=== PATIENT | male | born 1945 | race Caucasian/White ===

== ENCOUNTER → 2018-01-17 08:22 | Outpatient (CLI) | payer MEDICARE, SELFPAY ==
--- NOTE | 2018-01-17 08:30 | US_ITS ---
US abdomen limited History:Right upper quadrant pain Ordering Physician:Tim Bardales MD Patient Age: 72 years Comparison:None Findings: Pancreas:Unremarkable. No obvious mass or abnormal fluid collection. No ductal dilatation Liver:No focal liver lesions demonstrated. Homogeneous echogenicity. No intrahepatic biliary ductal dilatation evident. Right Kidney:There is thinning of the right renal cortex. No hydronephrosis. Gallbladder:No gallstones, gallbladder wall thickening, pericholecystic fluid, or biliary dilatation. There is mild amount of concentrated bile/sludge within the gallbladder measuring clinical significance. No shadowing stones. Impression: 1. No gallstones or gallbladder wall thickening or biliary dilatation. 2. Concentrated bile versus sludge within the gallbladder of questionable clinical significance
== END ==
PROVIDERS: Family Provider Family Medicine; PCP Family Medicine; Visit Provider Family Medicine
DX: R10.11 Right upper quadrant pain (principal)
CPT/HCPCS: 76705

== ENCOUNTER → 2019-03-20 10:21 | Outpatient (CLI) | payer MEDICARE, SELFPAY ==
[2019-03-20 10:42] LABS: Basophils % 0.8 % (0.1-2.0); Eosinophils # 0.2 K/mm3 (0.0-0.4); Eosinophils % 5.9 % (0.1-12.0); Hematocrit 47.5 % (42.0-52.0); Hemoglobin 14.6 g/dL (14.1-18.0); Lymphocytes # 1.1 K/mm3 (0.7-4.5); Lymphocytes % 29.6 % (10-50); Mean Corpuscular HGB Conc 30.8 g/dL (31.8-35.4); Mean Corpuscular Hemoglobin 28.1 pg (27.0-31.2); Mean Corpuscular Volume 91.4 fl (80-94); Mean Platelet Volume 9.9 fl (7.4-10.4); Monocytes # 0.2 K/mm3 (0.1-1.0); Monocytes % 5.8 % (1.7-9.3); Neutrophils # 2.1 K/mm3 (1.8-7.8); Neutrophils % 57.9 % (37.0-80.0); Platelet Count 131 K/mm3 (142-424); Red Cell Distribution Width 13.9 % (11.5-17.5); White Blood Count 3.6 K/mm3 (4.8-10.8)
[2019-03-20 10:47] LABS: Creatinine,Urine Random 80 mg/dL (20-320)
[2019-03-20 11:45] LABS: Alanine Aminotransferase 20 U/L (12-78); Albumin Level 3.2 gm/dL (3.4-5.0); Alkaline Phosphatase 60 U/L (46-116); Anion Gap 11.2 mEq/L (5-15); Aspartate Amino Transferase 16 U/L (15-37); Bilirubin,Total 0.7 mg/dL (0.2-1.0); Blood Urea Nitrogen 14 mg/dL (7-18); Calcium 8.9 mg/dL (8.5-10.1); Carbon Dioxide 30 mmol/L (21.0-32.0); Chloride 105 mmol/L (98-107); Chol/HDL Ratio 3.5 (1-3.5); Cholesterol 139 mg/dL (140-200); Creatinine,Serum 1.28 mg/dL (0.70-1.30); Estimated Glomerular Filt Rate 55 ml/min (>60); GFR (African American) 66 ML/MIN (>60); Globulin 3.1 gm/dl (1.3-3.2); Glucose 103 mg/dL (74-106); HDL Cholesterol 40 mg/dL (27-67); LDL Cholesterol 83 mg/dL (0-130); Potassium 4.2 mmoL/L (3.5-5.1); Prostate Specific Ag Screen 1.1 ng/mL (0.0-4.0); Sodium 142 mmol/L (136-145); Thyroid Stimulating Hormone 1.78 uIU/ml (0.358-3.740); Total Protein,Serum 6.3 gm/dL (6.4-8.2); Triglycerides 82 mg/dL (30-200); VLDL Cholesterol 16 mg/dL (0-40)
[2019-03-20 11:57] LABS: Hemoglobin A1C 5.8 % (0.0-7.0)
[2019-03-21 16:26] LABS: Microalbumin, Urine <3.0 ug/mL (Not Estab.)
== END ==
PROVIDERS: Visit Provider Nurse Practitioner
DX: E78.5 Hyperlipidemia, unspecified (principal); I10 Essential (primary) hypertension; M19.91 Primary osteoarthritis, unspecified site; N40.0 Benign prostatic hyperplasia without lower urinary tract symptoms; Z12.5 Encounter for screening for malignant neoplasm of prostate; Z79.899 Other long term (current) drug therapy
CPT/HCPCS: 36415; 80053; 80061; 82043; 82570; 83036; 84443; 85025; G0103

== ENCOUNTER → 2022-04-05 14:38 | Outpatient (CLI) | payer MEDICARE, OTHER, SELFPAY ==
[2022-04-05 18:25] LABS: Basophils % 0.9 % (0.1-2.0); Eosinophils # 0.2 K/mm3 (0.0-0.4); Eosinophils % 5.3 % (0.1-12.0); Hematocrit 47.6 % (42.0-52.0); Hemoglobin 14.9 g/dL (14.1-18.0); Lymphocytes # 0.9 K/mm3 (0.7-4.5); Lymphocytes % 21.1 % (10-50); Mean Corpuscular HGB Conc 31.2 g/dL (31.8-35.4); Mean Corpuscular Hemoglobin 28.7 pg (27.0-31.2); Mean Platelet Volume 11.5 fl (7.4-10.4); Monocytes # 0.2 K/mm3 (0.1-1.0); Monocytes % 5.8 % (1.7-9.3); Neutrophils # 2.7 K/mm3 (1.8-7.8); Neutrophils % 66.9 % (37.0-80.0); Platelet Count 139 K/mm3 (142-424); Red Blood Count 5.17 M/mm3 (4.60-6.20); Red Cell Distribution Width 13.7 % (11.5-17.5); White Blood Count 4.1 K/mm3 (4.8-10.8)
[2022-04-05 18:41] LABS: Alanine Aminotransferase 16 U/L (12-78); Albumin Level 3.7 g/dl (3.5-5.0); Albumin/Globulin Ratio 1.3 (1.1-1.8); Alkaline Phosphatase 90 U/L (38-126); Anion Gap 15.3 mEq/L (5-15); Aspartate Amino Transferase 26 U/L (17-59); Bilirubin,Total 0.8 mg/dl (0.2-1.3); Blood Urea Nitrogen 21 mg/dl (9-20); Calcium 9.6 mg/dl (8.4-10.2); Carbon Dioxide 26 mmol/L (22.0-30.0); Chloride 103 mmol/L (98-107); Chol/HDL Ratio 4.8 (1-3.5); Cholesterol 152 mg/dl (140-200); Estimated Glomerular Filt Rate 49 ml/min (>60); GFR (African American) 59 ML/MIN (>60); Globulin 2.8 g/dL (1.3-3.2); Glucose 97 mg/dl (74-100); HDL Cholesterol 32 mg/dl (40-60); Potassium 4.3 mmoL/L (3.5-5.1); Sodium 140 mmol/L (136-145); Total Protein,Serum 6.5 g/dl (6.3-8.2); Triglycerides 104 mg/dl (30-150); VLDL Cholesterol 21 mg/dL (0-40)
[2022-04-05 18:52] LABS: Direct LDL Cholesterol 93.64 mg/dL (100-129)
== END ==
PROVIDERS: PCP Nurse Practitioner; Visit Provider Nurse Practitioner
DX: E78.5 Hyperlipidemia, unspecified (principal); I10 Essential (primary) hypertension; M19.90 Unspecified osteoarthritis, unspecified site; N40.0 Benign prostatic hyperplasia without lower urinary tract symptoms; R60.0 Localized edema
CPT/HCPCS: 80053; 80061; 82043; 84443; 85025

== ENCOUNTER → 2022-04-06 12:47 | Outpatient (CLI) | payer MEDICARE, OTHER, SELFPAY ==
--- NOTE | 2022-04-06 13:00 | XR_ITS ---
FINAL REPORT TECHNIQUE: Chest PA & Lateral CLINICAL HISTORY: bibasilar rales FINDINGS: 2 views of the chest were performed. The heart size is normal. The mediastinum is within normal limits. There is no acute cardiopulmonary process. There are no pleural effusions. There is no pneumothorax. The bony thorax appears intact. IMPRESSION: No acute cardiopulmonary process. Reviewed, Interpreted and Dictated by Alberto Deng MD Transcribed by Soco Gandhi Authenticated and [facility]
== END ==
PROVIDERS: PCP Family Medicine; Visit Provider Nurse Practitioner
DX: R09.89 Other specified symptoms and signs involving the circulatory and respiratory systems (principal)
CPT/HCPCS: 71046

== ENCOUNTER → 2022-05-31 12:43 | Outpatient (CLI) | payer MEDICARE, OTHER, SELFPAY ==
--- NOTE | 2022-05-31 12:50 | XR_ITS ---
FINAL REPORT CLINICAL HISTORY: cough, bronchitis, LLL pneumonia COMPARISON: 04/06/2022 FINDINGS: 2 views of the chest were obtained . The heart is normal in size. The mediastinum is within normal limits. The lungs are clear. There is no pneumothorax. Osseous structures demonstrate moderate degenerative changes. IMPRESSION: No acute cardiopulmonary process. Reviewed, Interpreted and Dictated by Adi Downing III, MD Transcribed by Negrita Leonard Authenticated and [facility]
== END ==
PROVIDERS: PCP Family Medicine; Visit Provider Nurse Practitioner
DX: J18.9 Pneumonia, unspecified organism (principal); J40 Bronchitis, not specified as acute or chronic; R05.9 Cough, unspecified
CPT/HCPCS: 71046

== ENCOUNTER → 2022-06-14 12:35 | Outpatient (CLI) | payer MEDICARE, OTHER, SELFPAY ==
[2022-06-14 19:24] LABS: Alanine Aminotransferase 18 U/L (12-78); Albumin Level 3.6 g/dl (3.5-5.0); Albumin/Globulin Ratio 1.3 (1.1-1.8); Alkaline Phosphatase 65 U/L (38-126); Anion Gap 12.1 mEq/L (5-15); Aspartate Amino Transferase 22 U/L (17-59); Blood Urea Nitrogen 26 mg/dl (9-20); Calcium 8.9 mg/dl (8.4-10.2); Carbon Dioxide 27 mmol/L (22.0-30.0); Chloride 105 mmol/L (98-107); Estimated Glomerular Filt Rate 42 ml/min (>60); GFR (African American) 51 ML/MIN (>60); Globulin 2.7 g/dL (1.3-3.2); Glucose 117 mg/dl (74-100); Potassium 4.1 mmoL/L (3.5-5.1); Sodium 140 mmol/L (136-145); Total Protein,Serum 6.3 g/dl (6.3-8.2)
[2022-06-14 19:53] LABS: Thyroid Stimulating Hormone 0.86 uIU/mL (0.465-4.68)
[2022-06-14 20:29] LABS: Basophils % 0.6 % (0.1-2.0); Eosinophils # 0.2 K/mm3 (0.0-0.4); Eosinophils % 5.3 % (0.1-12.0); Hematocrit 43.8 % (42.0-52.0); Hemoglobin 14.5 g/dL (14.1-18.0); Lymphocytes # 0.9 K/mm3 (0.7-4.5); Mean Corpuscular Hemoglobin 29.5 pg (27.0-31.2); Mean Corpuscular Volume 89.5 fl (80-94); Mean Platelet Volume 11.2 fl (7.4-10.4); Monocytes # 0.2 K/mm3 (0.1-1.0); Monocytes % 5.3 % (1.7-9.3); Neutrophils % 67.7 % (37.0-80.0); Platelet Count 124 K/mm3 (142-424); Red Cell Distribution Width 14.1 % (11.5-17.5); White Blood Count 4.4 K/mm3 (4.8-10.8)
== END ==
PROVIDERS: PCP Nurse Practitioner; Visit Provider Nurse Practitioner
DX: I10 Essential (primary) hypertension (principal); J18.9 Pneumonia, unspecified organism; J40 Bronchitis, not specified as acute or chronic; M19.90 Unspecified osteoarthritis, unspecified site; R05.9 Cough, unspecified; R06.2 Wheezing; E78.5 Hyperlipidemia, unspecified
CPT/HCPCS: 80053; 84443; 85025

== ENCOUNTER → 2022-10-06 23:34 | Outpatient (CLI) | payer MEDICARE, OTHER, SELFPAY ==
[2022-10-06 18:56] LABS: Basophils % 1.1 % (0.1-2.0); Eosinophils # 0.2 K/mm3 (0.0-0.4); Eosinophils % 5.5 % (0.1-12.0); Hematocrit 45.1 % (42.0-52.0); Hemoglobin 14.7 g/dL (14.1-18.0); Lymphocytes # 0.8 K/mm3 (0.7-4.5); Lymphocytes % 18.9 % (10-50); Mean Corpuscular HGB Conc 32.7 g/dL (31.8-35.4); Mean Corpuscular Hemoglobin 29.2 pg (27.0-31.2); Mean Corpuscular Volume 89.4 fl (80-94); Mean Platelet Volume 10.8 fl (7.4-10.4); Monocytes # 0.2 K/mm3 (0.1-1.0); Monocytes % 5.7 % (1.7-9.3); Neutrophils # 2.8 K/mm3 (1.8-7.8); Neutrophils % 68.9 % (37.0-80.0); Platelet Count 136 K/mm3 (142-424); Red Blood Count 5.04 M/mm3 (4.60-6.20); Red Cell Distribution Width 13.7 % (11.5-17.5)
[2022-10-06 19:04] LABS: Chloride 99 mmol/L (98-107)
[2022-10-06 19:05] LABS: Potassium 3.9 mmoL/L (3.5-5.1); Sodium 137 mmol/L (136-145)
[2022-10-06 19:07] LABS: Blood Urea Nitrogen 19 mg/dl (9-20); Estimated Glomerular Filt Rate 49 ml/min (>60); GFR (African American) 59 ML/MIN (>60)
[2022-10-06 19:08] LABS: Alanine Aminotransferase 16 U/L (12-78); Albumin Level 3.5 g/dl (3.5-5.0); Albumin/Globulin Ratio 1.3 (1.1-1.8); Alkaline Phosphatase 75 U/L (38-126); Anion Gap 16.9 mEq/L (5-15); Aspartate Amino Transferase 28 U/L (17-59); Calcium 8.9 mg/dl (8.4-10.2); Carbon Dioxide 25 mmol/L (22.0-30.0); Globulin 2.7 g/dL (1.3-3.2); Glucose 97 mg/dl (74-100); Total Protein,Serum 6.2 g/dl (6.3-8.2)
[2022-10-06 19:19] LABS: C-Reactive Protein 9.7 mg/L (0-4)
[2022-10-06 19:38] LABS: Erythrocyte Sedimentation Rate 12 mm/hr (0-20)
[2022-10-06 22:05] LABS: Uric Acid 5.7 mg/dl (3.5-8.5)
[2022-10-08 11:12] LABS: RA Latex Turbid. <10.0 IU/mL (<14.0)
[2022-11-07 20:40] LABS: Antinuclear Antibodies, IFA Positive
== END ==
PROVIDERS: PCP Nurse Practitioner; Visit Provider Nurse Practitioner
DX: I10 Essential (primary) hypertension (principal); M19.90 Unspecified osteoarthritis, unspecified site
CPT/HCPCS: 80053; 84550; 85025; 85651; 86038; 86140; 86431

== ENCOUNTER → 2022-10-29 23:08 | Outpatient (CLI) | payer MEDICARE, OTHER, SELFPAY | PROVIDERS: PCP Nurse Practitioner; Visit Provider Nurse Practitioner | DX: J06.9 Acute upper respiratory infection, unspecified (principal); R30.0 Dysuria; B96.29 Other Escherichia coli [E. coli] as the cause of diseases classified elsewhere | CPT/HCPCS: 87086; 87088; 87186; 87635; C9803; U0003; U0005 ==

== ENCOUNTER → 2022-11-04 14:39 | Outpatient (CLI) | payer MEDICARE, OTHER, SELFPAY ==
--- NOTE | 2022-11-04 14:44 | XR_ITS ---
FINAL REPORT CLINICAL HISTORY: bronchitis, arrhythmia, soa FINDINGS: Two views of the chest were obtained. The heart size and pulmonary vascularity are within normal limits. The mediastinum is normal. No acute pulmonary abnormality is identified. There is no pneumothorax. The bony thorax is intact. IMPRESSION: No active cardiopulmonary disease. Reviewed, Interpreted and Dictated by Adi Downing III, MD Transcribed by Natividad Frias Authenticated and [facility]
--- NOTE | 2022-11-04 15:50 | ECG_ITS ---
APPROVED REPORT Exam: Resting ECG HR:110 bpm ECG Measurements Heart Rate 110 AXES QRSd 153 QRS 65 QT 365 T -14 QTc 430 Conclusion ATRIAL FIBRILLATION WITH RAPID VENTRICULAR RESPONSE WITH ABERRANT CONDUCTION OR VENTRICULAR PREMATURE COMPLEXES RIGHT BUNDLE BRANCH BLOCK [120+ ms QRS DURATION, UPRIGHT V1, 40+ ms S IN I/aVL/V4/V5/V6] ABNORMAL ECG UNCONFIRMED REPORT Electronically signed by : Kris Moscoso MD 11/05/2022 16:19:51
== END ==
PROVIDERS: PCP Nurse Practitioner; Visit Provider Nurse Practitioner
DX: I49.9 Cardiac arrhythmia, unspecified (principal); J40 Bronchitis, not specified as acute or chronic
CPT/HCPCS: 71046; 93005

== ENCOUNTER 2022-11-04 15:43 | Emergency (ER) | payer MEDICARE, OTHER, SELFPAY ==
[2022-11-04] VITALS (7 sets, daily range): BP systolic 126–163; BP diastolic 64–84; PULSE 55–113; RESP 11–18; TEMP 36.8–37; O2SAT 95–98; BMI 40.0
--- NOTE | 2022-11-04 16:10 | PC.NURSE ---
ED MD AT BEDSIDE
--- NOTE | 2022-11-04 16:15 | XR_ITS ---
PROCEDURE INFORMATION: Exam: XR Chest Exam date and time: 11/04/2022 4:22 PM Age: 77 years old Clinical indication: Other: A-fib; Patient HX: PT send to ED by physician, 0 chest complaints; Additional info: Edema TECHNIQUE: Imaging protocol: Radiologic exam of the chest. Views: 1 view. COMPARISON: CR XR CHEST 2V 11/04/2022 2:48 PM FINDINGS: Lungs: Lungs are clear. No consolidation or pulmonary edema. Pleural spaces: No pleural effusion. No pneumothorax. Heart/Mediastinum: Cardiomediastinal silhouette is normal. Mild aortic calcifications. Bones/joints: No acute abnormality. IMPRESSION: No acute cardiopulmonary disease.
--- NOTE | 2022-11-04 16:18 | HMH.EDARPALP ---
Discharge Plan Disposition Patient Disposition: Home, Self-Care Chief Complaint: Arrhythmia/Palpitations Prescriptions Prescriptions: No Action losartan 100 mg tablet 100 mg PO DAILY Qty: 90 1RF albuterol sulfate 90 mcg/actuation HFA aerosol inhaler 2 puff inhalation Q4-6H PRN (Reason: shortness of breath or wheezing) Qty: 8.5 0RF prednisone 20 mg tablet 20 mg PO .COMPLEX Qty: 15 0RF Rx Instructions: 20 mg orally BID x 5 days then daily x 5 days tamsulosin 0.4 mg capsule See Rx Instructions .ROUTE .COMPLEX Qty: 90 3RF Dose Instruction: TAKE 1 CAPSULE DAILY Rx Instructions: TAKE 1 CAPSULE DAILY meloxicam 15 mg tablet 15 mg PO DAILY Qty: 90 1RF atorvastatin 10 mg tablet See Rx Instructions .ROUTE .COMPLEX Qty: 90 1RF Dose Instruction: TAKE 1 TABLET DAILY Rx Instructions: TAKE 1 TABLET DAILY cefuroxime axetil 500 mg tablet 500 mg PO BID Qty: 20 0RF Referrals Follow up/Referrals: Keila Angel APRN [Primary Care Provider] - See instructions Clinical Impressions Clinical Impression: Cardiac dysrhythmia Discharge ED Provider: Andrew Pearce Arrhythmia/Palpitations HPI General Chief Complaint: Arrhythmia/Palpitations Stated Complaint: abnormal EKG Time Seen by Provider: 11/04/22 16:09 Mode of Arrival: Wheelchair Limitations: No Limitations Related Data Previous Rx's Medication Instructions Recorded losartan 100 mg tablet 100 mg PO DAILY #90 tabs 04/05/22 tamsulosin 0.4 mg capsule See Rx Instructions .Route 10/01/22 .COMPLEX #90 caps meloxicam 15 mg tablet 15 mg PO DAILY #90 tabs 10/07/22 atorvastatin 10 mg tablet See Rx Instructions .Route 10/12/22 .COMPLEX #90 tabs prednisone 20 mg tablet 20 mg PO .COMPLEX #15 tabs 10/29/22 cefuroxime axetil 500 mg tablet 500 mg PO BID #20 tabs 11/03/22 albuterol sulfate 90 mcg/actuation 2 puff inhalation Q4-6H PRN 11/04/22 aerosol inhaler shortness of breath or wheezing #8.5 grams Allergies Allergy/AdvReac Type Severity Reaction Status Date / Time No Known Allergies Allergy Verified 11/04/22 13:30 [facility] Disclaimer: The information contained in this section may have been updated after the patient was seen, as this information can be updated by other users. Medical History (Updated 11/04/22 @ 19:18 by Andrew Pearce MD) Bibasilar crackles Bilateral chronic knee pain Bilateral lower extremity edema BPH (benign prostatic hyperplasia) Cardiac arrhythmia Essential hypertension Hyperlipemia Hyperlipidemia Hypertension Osteoarthritis Surgical History History of knee replacement Social History Smoking Status: Never smoker alcohol intake: never current occupational status: retired Travel in the last 8 weeks: None ROS Obtained: Yes Systems reviewed as appropriate & no additional complaints except as documented Physical Exam General General appearance: alert and in no apparent distress Respiratory Respiratory exam: Present normal lung sounds bilaterally; Absent respiratory distress Cardiovascular Cardiovascular exam: Present regular rate and irregular rhythm Neurological Exam Neurological exam: Present alert, oriented X3 and CN II-XII intact Medical Decision Making Medical Records MR Comment: 77-year-old white male was sent to the emergency department with a question of atrial fibrillation. The patient was seeing his primary care provider and they noted an irregularity of his heartbeat and was concerned about atrial fibrillation. Patient is also being treated for known urinary tract infection as well. Evaluation has included a CBC CMP and a urinalysis. CMP reveals a creatinine of 1.5 and the urinalysis is positive for 20-50 white blood cells. Chest x-ray was unremarkable EKGs were obtained and the official interpretation from the machine was [facility]
[2022-11-04 16:30] LABS: Basophils % 0.2 % (0.1-2.0); Eosinophils % 0.4 % (0.1-12.0); Hematocrit 45.8 % (42.0-52.0); Hemoglobin 14.7 g/dL (14.1-18.0); Lymphocytes # 0.4 K/mm3 (0.7-4.5); Lymphocytes % 5.9 % (10-50); Mean Corpuscular HGB Conc 32.1 g/dL (31.8-35.4); Mean Corpuscular Hemoglobin 27.8 pg (27.0-31.2); Mean Corpuscular Volume 86.4 fl (80-94); Mean Platelet Volume 9.5 fl (7.4-10.4); Monocytes # 0.4 K/mm3 (0.1-1.0); Monocytes % 5.9 % (1.7-9.3); Neutrophils # 6.3 K/mm3 (1.8-7.8); Neutrophils % 87.7 % (37.0-80.0); Platelet Count 122 K/mm3 (142-424); Red Cell Distribution Width 13.8 % (11.5-17.5); White Blood Count 7.2 K/mm3 (4.8-10.8)
[2022-11-04 16:32] LABS: MANUAL DIFFERENTIAL MANUAL DIFFERENTIAL (MANUAL DIFF)
[2022-11-04 16:33] LABS: Alanine Aminotransferase 27 U/L (12-78); Albumin Level 3.4 g/dl (3.5-5.0); Albumin/Globulin Ratio 1.2 (1.1-1.8); Alkaline Phosphatase 61 U/L (38-126); Anion Gap 12.6 mEq/L (5-15); Aspartate Amino Transferase 27 U/L (17-59); Blood Urea Nitrogen 25 mg/dl (9-20); Calcium 8.6 mg/dl (8.4-10.2); Carbon Dioxide 27 mmol/L (22.0-30.0); Chloride 102 mmol/L (98-107); Creatinine Clearance Estimated 81 mL/min (50-200); Estimated Glomerular Filt Rate 45 ml/min (>60); GFR (African American) 55 ML/MIN (>60); Globulin 2.9 g/dL (1.3-3.2); Glucose 112 mg/dl (74-100); Magnesium 2.1 mg/dl (1.6-2.3); Potassium 3.6 mmoL/L (3.5-5.1); Sodium 138 mmol/L (136-145); Total Protein,Serum 6.3 g/dl (6.3-8.2)
[2022-11-04 16:38] LABS: D-Dimer 1.01 ug/mL (0.0-0.5)
[2022-11-04 16:46] LABS: Troponin I < 0.01 ng/ml (0.00-0.034)
[2022-11-04 16:54] LABS: Lymphocytes % 5 % (10-50); Monocytes % 6 % (2-9); Neutrophils % 89 % (42-76); Total Cells Counted 100
[2022-11-04 16:55] LABS: Platelet Estimate Slight Decrease; RBC Morphology Normal
[2022-11-04 16:56] LABS: Microscopic, Urine URINE MICROSCOPIC (MICROSCOPIC)
[2022-11-04 16:59] LABS: Appearance,Urine CLEAR (Clear); Bilirubin,Urine Negative (Negative); Blood, Urine 1+ (Negative); Color,Urine YELLOW (Yellow); Glucose,Urine (UA) Negative (Negative); Ketones,Urine Negative (Negative); Leukocyte Esterase,Urine 2+ (Negative); Nitrate,Urine Negative (Negative); Protein,Urine Negative (Negative); Urobilinogen,Urine 0.2 EU/dl (0.2)
[2022-11-04 17:29] LABS: WBC,Urine 20-50 #/hpf (0-3)
--- NOTE | 2022-11-04 17:53 | ECG_ITS ---
APPROVED REPORT Exam: Resting ECG HR:110 bpm ECG Measurements Heart Rate 110 AXES QRSd 154 QRS 66 QT 370 T -18 QTc 435 Conclusion ATRIAL FIBRILLATION WITH RAPID VENTRICULAR RESPONSE WITH ABERRANT CONDUCTION OR VENTRICULAR PREMATURE COMPLEXES RIGHT BUNDLE BRANCH BLOCK [120+ ms QRS DURATION, UPRIGHT V1, 40+ ms S IN I/aVL/V4/V5/V6] ABNORMAL ECG UNCONFIRMED REPORT Electronically signed by : Kris Moscoso MD 11/05/2022 16:19:36
[2022-11-04 18:24] LABS: Troponin I < 0.01 ng/ml (0.00-0.034)
== END 2022-11-04 19:29 | disposition home or self-care (01) ==
PROVIDERS: Emergency Provider Emergency Medicine; PCP Nurse Practitioner
DX: R00.2 Palpitations (principal); I10 Essential (primary) hypertension; E78.5 Hyperlipidemia, unspecified; N40.0 Benign prostatic hyperplasia without lower urinary tract symptoms
CPT/HCPCS: 71045; 71046; 80053; 81001; 83735; 84484; 85007; 85025; 85378; 87086; 93005; 96372; 99285

== ENCOUNTER 2022-11-08 12:15 | Day surgery (SDC) | payer MEDICARE, OTHER, SELFPAY ==
[2022-11-08 12:34] VITALS: BMI 43.0
--- NOTE | 2022-11-08 12:52 | ECG_ITS ---
APPROVED REPORT Exam: Resting ECG HR:98 bpm ECG Measurements Heart Rate 98 AXES QRSd 154 QRS 60 QT 400 T -9 QTc 455 Conclusion ATRIAL FIBRILLATION WITH ABERRANT CONDUCTION OR VENTRICULAR PREMATURE COMPLEXES RIGHT BUNDLE BRANCH BLOCK [120+ ms QRS DURATION, UPRIGHT V1, 40+ ms S IN I/aVL/V4/V5/V6] ABNORMAL ECG UNCONFIRMED REPORT Electronically signed by : Kris Moscoso MD 11/08/2022 17:10:44
[2022-11-08 13:00] VITALS: BP 159/84; PULSE 93; RESP 18; O2SAT 100
--- NOTE | 2022-11-08 13:00 | ECG_ITS ---
APPROVED REPORT Exam: Resting ECG HR:95 bpm ECG Measurements Heart Rate 95 AXES QRSd 154 QRS 63 QT 412 T -1 QTc 464 Conclusion ATRIAL FLUTTER/TACHYCARDIA RIGHT BUNDLE BRANCH BLOCK [120+ ms QRS DURATION, UPRIGHT V1, 40+ ms S IN I/aVL/V4/V5/V6] ABNORMAL ECG UNCONFIRMED REPORT Electronically signed by : Kris Moscoso MD 11/08/2022 17:10:32
[2022-11-08 13:15] VITALS: BP 128/57; PULSE 81; RESP 17; O2SAT 95
[2022-11-08 13:30] VITALS: BP 130/75; PULSE 91; RESP 18; O2SAT 95
--- NOTE | 2022-11-08 13:43 | ECG_ITS ---
APPROVED REPORT Exam: Resting ECG HR:83 bpm ECG Measurements Heart Rate 83 AXES QRSd 154 QRS 59 QT 414 T 12 QTc 453 Conclusion ATRIAL FLUTTER/TACHYCARDIA RIGHT BUNDLE BRANCH BLOCK [120+ ms QRS DURATION, UPRIGHT V1, 40+ ms S IN I/aVL/V4/V5/V6] ABNORMAL ECG UNCONFIRMED REPORT Electronically signed by : Kris Moscoso MD 11/08/2022 17:10:26
[2022-11-08 13:45] VITALS: BP 131/80; PULSE 79; RESP 17; O2SAT 98
[2022-11-08 14:00] VITALS: BP 134/71; PULSE 88; RESP 19; O2SAT 96
[2022-11-08 14:05] VITALS: BP 123/68; PULSE 83; RESP 18; O2SAT 95
== END 2022-11-08 14:10 | disposition home or self-care (01) ==
PROVIDERS: PCP Family Medicine; Visit Provider Internal Medicine
DX: E78.5 Hyperlipidemia, unspecified (principal); I10 Essential (primary) hypertension; I49.9 Cardiac arrhythmia, unspecified; R00.0 Tachycardia, unspecified; R60.0 Localized edema; R94.31 Abnormal electrocardiogram [ECG] [EKG]
CPT/HCPCS: 93005; 93306; 96365; 96366; 96374; 96375; 96376

== ENCOUNTER → 2022-11-10 07:07 | Outpatient (CLI) | payer MEDICARE, OTHER, SELFPAY | PROVIDERS: PCP Family Medicine; Visit Provider Internal Medicine | DX: I48.92 Unspecified atrial flutter (principal) ==

== ENCOUNTER → 2022-11-13 11:20 | Outpatient (CLI) | payer MEDICARE, OTHER, SELFPAY ==
--- NOTE | 2022-11-13 11:50 | ECG_ITS ---
APPROVED REPORT Exam: Resting ECG HR:91 bpm ECG Measurements Heart Rate 91 AXES QRSd 156 QRS 77 QT 399 T 19 QTc 448 Conclusion ATRIAL FLUTTER/TACHYCARDIA RIGHT BUNDLE BRANCH BLOCK [120+ ms QRS DURATION, UPRIGHT V1, 40+ ms S IN I/aVL/V4/V5/V6] ABNORMAL ECG UNCONFIRMED REPORT Electronically signed by : Kris Moscoso MD 11/13/2022 21:16:02
== END ==
PROVIDERS: PCP Family Medicine; Visit Provider Family Medicine
DX: I48.92 Unspecified atrial flutter (principal)
CPT/HCPCS: 93005

== ENCOUNTER → 2022-11-29 23:16 | Outpatient (CLI) | payer MEDICARE, OTHER, SELFPAY ==
[2022-11-29 19:29] LABS: Anion Gap 12.3 mEq/L (5-15); Blood Urea Nitrogen 20 mg/dl (9-20); Calcium 8.7 mg/dl (8.4-10.2); Carbon Dioxide 27 mmol/L (22.0-30.0); Chloride 104 mmol/L (98-107); Estimated Glomerular Filt Rate 49 ml/min (>60); GFR (African American) 59 ML/MIN (>60); Glucose 97 mg/dl (74-100); Potassium 4.3 mmoL/L (3.5-5.1); Sodium 139 mmol/L (136-145)
== END ==
PROVIDERS: PCP Nurse Practitioner; Visit Provider Nurse Practitioner
DX: I10 Essential (primary) hypertension (principal); I48.92 Unspecified atrial flutter; R00.0 Tachycardia, unspecified
CPT/HCPCS: 80048

== ENCOUNTER → 2022-12-07 12:15 | Outpatient (CLI) | payer MEDICARE, OTHER, SELFPAY ==
[2022-12-07 18:37] LABS: Microscopic, Urine URINE MICROSCOPIC (MICROSCOPIC)
[2022-12-07 18:59] LABS: Basophils % 0.2 % (0.1-2.0); Eosinophils # 0.1 K/mm3 (0.0-0.4); Eosinophils % 0.8 % (0.1-12.0); Hematocrit 39.9 % (42.0-52.0); Hemoglobin 12.8 g/dL (14.1-18.0); Lymphocytes # 0.7 K/mm3 (0.7-4.5); Lymphocytes % 10.3 % (10-50); Mean Corpuscular HGB Conc 32.2 g/dL (31.8-35.4); Mean Corpuscular Hemoglobin 27.8 pg (27.0-31.2); Mean Corpuscular Volume 86.4 fl (80-94); Mean Platelet Volume 11.4 fl (7.4-10.4); Monocytes # 0.6 K/mm3 (0.1-1.0); Monocytes % 9.3 % (1.7-9.3); Neutrophils # 5.5 K/mm3 (1.8-7.8); Neutrophils % 79.4 % (37.0-80.0); Platelet Count 113 K/mm3 (142-424); Red Blood Count 4.61 M/mm3 (4.60-6.20); Red Cell Distribution Width 14.1 % (11.5-17.5); White Blood Count 6.9 K/mm3 (4.8-10.8)
[2022-12-07 19:32] LABS: Appearance,Urine TURBID (Clear); Bilirubin,Urine 1+ (Negative); Blood, Urine 3+ (Negative); Color,Urine ORANGE (Yellow); Glucose,Urine (UA) Negative (Negative); Ketones,Urine Negative (Negative); Leukocyte Esterase,Urine 2+ (Negative); Nitrate,Urine POSITIVE (Negative); Protein,Urine 1+ (Negative)
[2022-12-07 20:15] LABS: WBC,Urine 20-50 #/hpf (0-3)
[2022-12-07 20:16] LABS: Bacteria,Urine 4+ /lpf; Squamous Epithelial Cell,Urine Occasional #/hpf (0-5)
== END ==
PROVIDERS: PCP Family Medicine; Visit Provider Family Medicine
DX: I48.92 Unspecified atrial flutter (principal); R68.83 Chills (without fever); N39.0 Urinary tract infection, site not specified; B96.29 Other Escherichia coli [E. coli] as the cause of diseases classified elsewhere
CPT/HCPCS: 81001; 85025; 87086; 87088; 87186

== ENCOUNTER 2023-05-02 12:35 | Emergency (ER) | payer MEDICARE, OTHER, SELFPAY ==
[2023-05-02 12:36] VITALS: BP 161/78; PULSE 85; RESP 17; TEMP 36.8; O2SAT 98; BMI 38.5
[2023-05-02 12:46] VITALS: BMI 38.5
--- NOTE | 2023-05-02 12:47 | US_ITS ---
FINAL REPORT TECHNIQUE: Ultrasound images of the testicles were obtained bilaterally. Color Doppler images were obtained. CLINICAL HISTORY: pain, swelling R testicle, r/o torsion FINDINGS: The testicles are normal in size and echotexture bilaterally. Arterial flow is identified bilaterally. There are bilateral epididymal cysts with small hydroceles. Increased flow is seen in the right epididymis with a small varicocele. IMPRESSION: Increased on the right which may relate to mild epididymitis. Small right varicocele. Reviewed, Interpreted and Dictated by Alberto Deng MD Transcribed by Negrita Leonard Authenticated and [facility]
--- NOTE | 2023-05-02 13:06 | PC.NURSE ---
Pt going to Ultrasound
--- NOTE | 2023-05-02 13:14 | PC.NURSE ---
Pt taken to u/s via wheelchair
--- NOTE | 2023-05-02 14:00 | PC.NURSE ---
Pt returned from u/s
--- NOTE | 2023-05-02 14:00 | PC.NURSE ---
Pt returned from u/s
[2023-05-02 14:19] LABS: Microscopic, Urine URINE MICROSCOPIC (MICROSCOPIC)
[2023-05-02 14:25] LABS: Appearance,Urine CLEAR (Clear); Bilirubin,Urine Negative (Negative); Blood, Urine TRACE-I (Negative); Color,Urine YELLOW (Yellow); Glucose,Urine (UA) Negative (Negative); Ketones,Urine Negative (Negative); Leukocyte Esterase,Urine 2+ (Negative); Nitrate,Urine POSITIVE (Negative); Protein,Urine Negative (Negative); Specific Gravity, Urine 1.015 (1.005-1.030); Urobilinogen,Urine 0.2 EU/dl (0.2)
[2023-05-02 14:43] LABS: Bacteria,Urine 3+ /lpf; RBC,Urine Occasional #/hpf (0-3); WBC,Urine 20-50 #/hpf (0-3)
--- NOTE | 2023-05-02 15:24 | PC.NURSE ---
Dr. Mon at bedside
--- NOTE | 2023-05-02 15:34 | HMH.EDGENADL ---
Discharge Plan Disposition Patient Disposition: Home, Self-Care Condition: Good Prescriptions Prescriptions: New levofloxacin 500 mg tablet 500 mg PO DAILY 10 Days Qty: 10 0RF No Action diltiazem HCl 120 mg capsule,ext.rel 24h degradable 120 mg PO DAILY Qty: 90 3RF atorvastatin 10 mg tablet 10 mg PO DAILY Qty: 90 3RF Eliquis 5 mg tablet 5 mg PO BID Qty: 180 3RF metoprolol succinate 50 mg tablet extended release 24 hr 50 mg PO DAILY Qty: 90 3RF tamsulosin 0.4 mg capsule See Rx Instructions .ROUTE .COMPLEX Qty: 90 3RF Dose Instruction: TAKE 1 CAPSULE DAILY Rx Instructions: TAKE 1 CAPSULE DAILY furosemide 20 mg tablet See Rx Instructions .ROUTE .COMPLEX Qty: 30 2RF Dose Instruction: TAKE 1 TABLET BY MOUTH DAILY Rx Instructions: TAKE 1 TABLET BY MOUTH DAILY Referrals Follow up/Referrals: Louis Palafox MD [Primary Care Provider] - See instructions Activity Restrictions/Add. Instructions Additional Instructions/Restrictions: Please follow-up with your primary care provider. Please return to the emergency department if you develop any new or worsening symptoms or become concerned for your health. You have been given a prescription for an antibiotic, it is important that you complete the entire antibiotic course as prescribed. Clinical Impressions Clinical Impression: Acute epididymo-orchitis, Acute UTI Instructions Patient Instructions: DI for Urinary Tract Infection (UTI), DI for Urinary Tract Infection in Children Discharge ED Provider: Anthony Mon I General Adult HPI General Chief complaint: Urogenital-Male Stated complaint: right testicle swollen Time Seen by Provider: 05/02/23 12:39 Mode of Arrival: Family Vehicle Source of Information: Patient Limitations: No Limitations Description of Symptoms (Recalled from ER Triage Doc. by RN): Pt c/o right testicle swelling and pain that began yesterday morning. Report the pain goes into his lower back. He is still able to void wo difficulty. Denies any fever, chills, or n/v/d. He has a hx of BPH that is managed with Flomax. Denies and discoloration to scrotum or skin issues. History of Present Illness HPI narrative: Patient is a 77-year-old male with history of atrial flutter, and anticoagulation, hypertension who is presenting to the emergency department with a 2-day history of right scrotal swelling, minimal pain. History was conducted with the patient at bedside. Patient reports that he has noted symptoms of increased testicular swelling, pain over the past 2 days and it appears red. He denies any significant pain, nausea, vomiting. Also denies fever, dysuria, penile discharge. Denies prior history of scrotal swelling, urinary tract infections. Denies abdominal pain, diarrhea, constipation, chest pain, shortness of breath, difficulty breathing. Denies any recent trauma or injuries to this area. Related Data Previous Rx's Medication Instructions Recorded tamsulosin 0.4 mg capsule See Rx Instructions .Route 10/01/22 .COMPLEX #90 caps apixaban 5 mg tablet (Eliquis) 5 mg PO BID #180 tabs 02/02/23 atorvastatin 10 mg tablet 10 mg PO DAILY #90 tabs 02/02/23 diltiazem HCl 120 mg 120 mg PO DAILY #90 caps 02/02/23 capsule,extended release 24 hr, controlled metoprolol succinate 50 mg 50 mg PO DAILY #90 tabs 02/02/23 tablet,extended release 24 hr furosemide 20 mg tablet See Rx Instructions .Route 03/01/23 .COMPLEX #30 tabs levofloxacin 500 mg tablet 500 mg PO DAILY 10 days #10 tabs 05/02/23 Allergies Allergy/AdvReac Type Severity Reaction Status Date / Time No Known Allergies Allergy Verified 02/02/23 15:28 [facility] Disclaimer: The information contained in this section may have been updated after the patient was seen, as this information can be updated by other users. Medical History Abnormal electrocardiogram [ECG] [EKG]
[2023-05-02 15:41] VITALS: BP 138/70; PULSE 78; RESP 20; TEMP 36.6; O2SAT 97
--- NOTE | 2023-05-10 10:48 | PC.NURSE ---
urine culture shows e.coli was dc on levaquin, not appropriate for culture results, called pf for pharmacy, switched antibiotic to cefdinir 300mg bid for 7 days.
== END 2023-05-02 15:43 | disposition home or self-care (01) ==
PROVIDERS: Emergency Provider Emergency Medicine; PCP Family Medicine
DX: N45.3 Epididymo-orchitis (principal); N39.0 Urinary tract infection, site not specified; N40.1 Benign prostatic hyperplasia with lower urinary tract symptoms; I10 Essential (primary) hypertension; E78.5 Hyperlipidemia, unspecified; I48.92 Unspecified atrial flutter; Z87.891 Personal history of nicotine dependence
CPT/HCPCS: 76870; 81001; 87086; 99284

== ENCOUNTER → 2023-05-10 23:12 | Outpatient (CLI) | payer MEDICARE, OTHER, SELFPAY ==
[2023-05-10 18:46] LABS: Influenza A, PCR Not Detected (NotDetected); Influenza B, PCR Not Detected (NotDetected)
[2023-05-10 20:34] LABS: Coronavirus 19, PCR Detected (NotDetected)
== END ==
PROVIDERS: PCP Nurse Practitioner; Visit Provider Nurse Practitioner
DX: J06.9 Acute upper respiratory infection, unspecified (principal); U07.1 COVID-19
CPT/HCPCS: 87636

== ENCOUNTER 2024-06-13 14:55 | Outpatient (CLI) | payer MEDICARE, OTHER, SELFPAY ==
[2024-06-13 18:39] LABS: Alanine Aminotransferase 16 U/L (12-78); Albumin Level 3.5 g/dl (3.5-5.0); Albumin/Globulin Ratio 1.4 (1.1-1.8); Alkaline Phosphatase 92 U/L (38-126); Anion Gap 11.1 mEq/L (5-15); Aspartate Amino Transferase 21 U/L (17-59); Bilirubin,Total 0.9 mg/dl (0.2-1.3); Blood Urea Nitrogen 19 mg/dl (9-20); Calcium 9.1 mg/dl (8.4-10.2); Carbon Dioxide 30 mmol/L (22.0-30.0); Chloride 101 mmol/L (98-107); Chol/HDL Ratio 3.3 (1-3.5); Cholesterol 128 mg/dl (140-200); Estimated Glomerular Filt Rate 65 ml/min (>60); GFR (African American) 78 ML/MIN (>60); Globulin 2.5 g/dL (1.3-3.2); Glucose 112 mg/dl (74-100); HDL Cholesterol 39 mg/dl (40-60); Potassium 4.1 mmoL/L (3.5-5.1); Sodium 138 mmol/L (136-145); Triglycerides 63 mg/dl (30-150); VLDL Cholesterol 13 mg/dL (0-40)
[2024-06-13 18:49] LABS: Direct LDL Cholesterol 82.44 mg/dL (100-129)
[2024-06-13 19:10] LABS: Thyroid Stimulating Hormone 0.94 uIU/mL (0.465-4.68)
[2024-06-13 19:14] LABS: Microalbumin/Creatinine Ratio 7.9
[2024-06-13 19:30] LABS: Creatinine,Urine Random 342 mg/dL (Not Estab.)
[2024-06-13 19:31] LABS: Hemoglobin A1C 6.1 % (4.0-6.0)
== END 2024-06-13 23:59 | disposition home or self-care (01) ==
LOC: LAB.DROPOF 06-14 10:25
PROVIDERS: PCP Family Medicine; Visit Provider Nurse Practitioner
DX: Z12.5 Encounter for screening for malignant neoplasm of prostate (principal); R73.01 Impaired fasting glucose; I10 Essential (primary) hypertension; I48.92 Unspecified atrial flutter; E87.6 Hypokalemia; E78.5 Hyperlipidemia, unspecified
CPT/HCPCS: 80053; 80061; 82043; 82570; 83036; 84443; G0103